=== PATIENT | female | born 1990 ===

== ENCOUNTER 2017-04-24 14:21 | Emergency (ER) | payer MEDICAID ==
[2017-04-24 14:35] VITALS: RESP 18
--- NOTE | 2017-04-24 15:04 | ED PDOC ---
HPI: Fever Fever Onset Was: 04/22/17 What Antipyretic Given Prior To Arrival: Ibuprofen Recent Sick Contacts: No Have you had recent travel within the past 21 days to any of the following countries: [place], [place], [place] or [place]?: No Did The Patient Have A Seizure Today: No Symptoms Associated With Fever: Cough (Mild Cough ), Difficulty Feeding/Eating. denies: Vomiting, Diarrhea Additional Comments: 26 y/o female patient presenting to the ED with a fever. Pt states that the fever presented 3 days ago (Saturday) and that when she went to see her primary care physcican (Dr. Jesse Gaspar), he stated she had an ear infection and prescribed her eardrops. PT states that yesterday she was pale and almost fainted and took two tablets of motrin but the symptoms were not resolved. PT states that is why today she decided to come to the ED. PT also states that 1 week ago she went to see Dr. Gaspar for mucus and was prescribed Loratadine because the symptoms were a result of her allergies. She states she has only had a light cough, does not have an appetite and denies sore throat, vomitin or nausea. She also has had a 5 months ago and her menstrual period has not returned yet. And denies any allergies to medications, past surgical history or past medical history. Past Medical History Reviewed: Historical Data, Nursing Documentation, Vital Signs Vital Signs: Last Vital Signs Temp 101.7 F H 04/24/17 14:28 Pulse 127 H 04/24/17 14:28 Resp 18 04/24/17 14:28 BP 121/65 04/24/17 14:28 Pulse Ox 99 04/24/17 15:27 - Medical History PMH: No Chronic Diseases - Surgical History Surgical History: - Family History Family History: States: Unknown Family Hx - Social History Current smoker - smoking cessation education provided: No Alcohol: Social Drugs: Denies - Home Medications Home Medications: Ambulatory Orders Medication Instructions Recorded Cephalexin [cephalexin] 500 mg PO BID 10 Days 04/24/17 - Allergies Allergies/Adverse Reactions: Allergies Allergy/AdvReac Type Severity Reaction Status Date / Time No Known Allergies Allergy Verified 04/24/17 14:28 Review of Systems ROS Statement: Except As Marked, All Systems Reviewed And Found Negative Constitutional: Positive for: Fever. Negative for: Chills ENT: Negative for: Ear Pain, Throat Pain, Throat Swelling Respiratory: Positive for: Cough (Mild Cough ). Negative for: Shortness of Breath Gastrointestinal: Negative for: Nausea, Vomiting, Diarrhea Genitourinary Female: Negative for: Dysuria Physical Exam - Reviewed Nursing Documentation Reviewed: Yes Vital Signs Reviewed: Yes - Physical Exam Appears: Positive for: Non-toxic, No Acute Distress Skin: Positive for: Normal Color, Warm ENT: Positive for: Normal ENT Inspection Cardiovascular/Chest: Positive for: Regular Rate, Rhythm. Negative for: Murmur Respiratory: Positive for: Normal Breath Sounds. Negative for: Respiratory Distress Neurologic/Psych: Positive for: Alert, Oriented. Negative for: Motor/Sensory Deficits - Laboratory Results Result Diagrams: 04/24/17 15:50 04/24/17 15:50 - ECG O2 Sat by Pulse Oximetry: 99 (RA) Pulse Ox Interpretation: Normal Medical Decision Making Medical Decision Making: Time: 1500 Initial impression: Fever Viral Syndrome Rule Out Pneumonia Initial plan: --CMP --ED URINE DIPSTICK --ED URINE --CBC --CHEST TWO VIEWS --IBUPROFEN 600MG --BLOOD CULTURE --THROAT CULTURE --URINE CULTURE --INFLUENZA A B --RAPID STREP GROUP --URINALYSIS On re-eval, Pt appears greatly improved. Temp: 99.8 F CXR: NAd, as read by GARETH Labs resulted and reviewed with Pt who demonstrated full understanding Pt started on Rocephin for UTI. Denies any hematuria or dysuria, admits to foul smelling urine Scribe Attestation: Documented by Abbey Hernandez acting as a scribe for LEE Jacinto MD Scribe Attestation: All medical record entries made by the Scribe were at my direction and personally dictated by me. I have reviewed the chart and agree that the record accurately reflects my personal performance of the history, physical exam, medical decision making, and the department course for this patient. I have also personally directed, reviewed, and agree with the discharge instructions and disposition. Disposition - Clinical Impression Clinical Impression: Fever in adult, UTI (urinary tract infection) - Patient ED Disposition Is Patient to be Admitted: No - Disposition Disposition: Routine/Home Disposition Time: 17:19 Condition: STABLE Prescriptions: Cephalexin [cephalexin] 500 mg PO BID 10 Days Instructions: Urinary Tract Infection in Women (ED) Forms: [facility] ([place]) - POA Present On Arrival: None
[2017-04-24] MEDS ORDERED: Sodium Chloride 0.9% 1,000 ML IV STA (15:31)
[2017-04-24 15:57] LABS: BASO % 0.3 % (0.0-2.0); HEMATOCRIT 37.4 % (34.0-47.0); LYMPH # 1.2 K/uL (1.0-4.3); LYMPH % 9.4 % (20.0-40.0); MEAN CELL VOLUME 89.3 fl (81.0-99.0); MEAN CORPUSCULAR HEMOGLOBIN 29.4 pg (27.0-31.0); MEAN CORPUSCULAR HGB CONC 32.9 g/dL (33.0-37.0); MEAN PLATELET VOLUME 9.3 fl (7.2-11.7); MONO # 1.2 K/uL (0.0-0.8); MONO % 8.9 % (0.0-10.0); NEUT # 10.6 K/uL (1.8-7.0); NEUT % 81.4 % (50.0-75.0); NRBC % 0.1 % (0.0-0.0); PLATELET COUNT 235 K/uL (130-400); RED CELL DISTRIBUTION WIDTH 13.2 % (11.5-14.5); WHITE BLOOD COUNT 13.1 K/uL (4.8-10.8)
[2017-04-24 16:10] LABS: ALKALINE PHOSPHATASE 93 U/L (38-126); ALT/SGPT 24 U/L (9-52); AST/SGOT 26 U/L (14-36); BILIRUBIN,TOTAL 0.7 mg/dl (0.2-1.3); BLOOD UREA NITROGEN 7 mg/dl (7-17); CALCIUM 9.7 mg/dL (8.4-10.2); CARBON DIOXIDE 26 mmol/L (22-30); CHLORIDE 99 mmol/L (98-107); GFR AFRICAN-AMERICAN > 60; GLUCOSE,RANDOM 106 mg/dL (65-105); POTASSIUM 4.3 MMOL/L (3.6-5.0); SODIUM 137 mmol/l (132-148); TOTAL PROTEIN 9.1 G/DL (6.3-8.2)
[2017-04-24 16:15] LABS: RBC URINE 11 /hpf (0-3); URINE BACTERIA RARE (<OCC); URINE BILIRUBIN NEGATIVE (NEGATIVE); URINE BLOOD NEGATIVE (NEGATIVE); URINE COLOR YELLOW (YELLOW); URINE GLUCOSE (UA) NEG (Normal); URINE KETONE NEGATIVE (NEGATIVE); URINE LEUKOCYTE ESTERASE MOD Leu/uL (Negative); URINE PROTEIN 100 mg/dL (NEGATIVE); WBC URINE 31 /hpf (0-5)
--- NOTE | 2017-04-24 16:46 | RAD ---
HISTORY: fever COMPARISON: None available. TECHNIQUE: Chest PA and lateral FINDINGS: LUNGS: No focal consolidation. Please note that chest x-ray has limited sensitivity for the detection of pulmonary masses. PLEURA: No significant pleural effusion identified. No definite pneumothorax . CARDIOVASCULAR: The cardiomediastinal silhouette appears within normal limits of size. OSSEOUS STRUCTURES: Right shoulder calcific tendinitis. No acute osseous abnormality is detected. VISUALIZED UPPER ABDOMEN: Unremarkable. OTHER FINDINGS: None. IMPRESSION: No focal consolidation, significant pleural effusion, or definite pneumothorax identified.
[2017-04-24 18:34] VITALS: BP 102/60; PULSE 90; TEMP 98.2; O2SAT 100
[2017-04-24 18:58] LABS: NEUTROPHIL 84 % (42-75); TOTAL CELLS COUNTED 100
[2017-04-24 18:59] LABS: LARGE PLATELETS PRESENT
== END 2017-04-24 18:33 | disposition home or self-care (01) ==
LOC: H.ER 14:21
DX: N39.0 Urinary tract infection, site not specified (principal); R05 Cough